=== PATIENT | female | born 1950 | race Hispanic/Latino ===

== ENCOUNTER 2017-05-12 05:51 | Observation (INO) | payer OTHER ==
[2017-05-09 10:30] VITALS: BP 95/56
[2017-05-09 10:35] LABS: BASOPHILS % (AUTO) 0.5 % (0.0-5.0); EOSINOPHILS % (AUTO) 3.8 % (0.0-8.0); HEMATOCRIT 32.9 % (36-48); LYMPHOCYTES % (AUTO) 16.1 % (21.0-51.0); MEAN CORPUSCULAR HGB CONC 33.5 g/dL (32.0-36.0); MEAN CORPUSCULAR VOLUME 83.6 fL (79-99); MONOCYTES % (AUTO) 12.8 % (3.0-13.0); NEUTROPHILS % (AUTO) 66.8 % (40.0-77.0); PLATELET COUNT (AUTO) 310 K/uL (130-400); RED BLOOD CELL COUNT(AUTO) 3.93 MIL/uL (4.00-5.50); RED CELL DISTRIBUTION WIDTH 15.4 % (11.0-15.5); WHITE BLOOD COUNT (AUTO) 4.3 K/uL (4.8-10.8)
[2017-05-09 10:41] LABS: CREATININE 0.5 mg/dL (0.5-1.5); POTASSIUM 4.4 mmol/L (3.5-5.1)
[2017-05-09 10:46] LABS: INR 0.96 (0.85-1.15); PARTIAL THROMBOPLASTIN TIME 25.7 SEC (26.3-35.5); PROTHROMBIN TIME 10.1 SEC (9.6-11.6)
[2017-05-11] VITALS (9 sets, daily range): BP systolic 90–109; BP diastolic 53–68
[~2017-05-12] VITALS: Ht 157.5 cm; Wt 38.3 kg
[2017-05-12] VITALS (10 sets, daily range): BP systolic 76–96; BP diastolic 50–71
[~2017-05-12 05:51] MED LIST: ALBU2.5V2 IH; AZIT250T9 PO; ETHA100T14 PO; ETHA400T8 PO; METO25TA3 PO; MULT-1203 PO; RIFA300C4 PO; SODIUM CHLORIDE 0.9% 1000ML 1,000 ML IV ONE
[2017-05-12] MEDS ORDERED: HEPARIN SODIUM 1000UNIT/ML 10ML VIAL ONE (07:15)
[2017-05-12] MEDS ORDERED: LIDOCAINE HCL 2% 20ML ONE ×2 (07:16→07:56)
[2017-05-12] MEDS ORDERED: MIDAZOLAM HCL 1 MG/ML 2ML VIAL ONE (07:56)
[2017-05-12] MEDS ORDERED: MEPERIDINE-PF 50 MG/ML SYG ONE (07:56)
[2017-05-12] MEDS ORDERED: ISOPROTERENOL HCL 0.2 MG/ML AMP/VIAL/BAG ONE (08:37)
[2017-05-12] MEDS ORDERED: ADENOSINE 3 MG/ML 2ML VIAL IV ONE (08:58)
[2017-05-12] MEDS ORDERED: ONDANSETRON HCL 4 MG/2 ML VIAL ONE (12:35)
[2017-05-12] MEDS ORDERED: ACETAMINOPHEN-CODEINE 300/30MG TAB PO PRN ×2 (13:15)
[2017-05-12] MEDS ORDERED: ACETAMINOPHEN 325 MG TAB PO PRN (13:15)
[2017-05-12] MEDS: ALBUTEROL SULFATE 0.083% 2.5 MG/3 ML INH IH SCH (20:04)
[2017-05-13 03:28] VITALS: BP 90/54
[2017-05-13 04:38] LABS: HEMATOCRIT 28.8 % (36-48); MEAN CORPUSCULAR HEMOGLOBIN 28.6 pg (27.0-33.0); MEAN CORPUSCULAR HGB CONC 34.3 g/dL (32.0-36.0); MEAN CORPUSCULAR VOLUME 83.5 fL (79-99); PLATELET COUNT (AUTO) 245 K/uL (130-400); RED BLOOD CELL COUNT(AUTO) 3.45 MIL/uL (4.00-5.50); RED CELL DISTRIBUTION WIDTH 14.9 % (11.0-15.5)
[2017-05-13 04:45] LABS: CREATININE 0.6 mg/dL (0.5-1.5); POTASSIUM 3.9 mmol/L (3.5-5.1)
[2017-05-13] MEDS: ALBUTEROL SULFATE 0.083% 2.5 MG/3 ML INH IH SCH (06:22)
[2017-05-13 07:00] VITALS: BP 83/49
[2017-05-13] MEDS ORDERED: RIFAMPIN 300 MG CAPSULE PO SCH (09:00)
[2017-05-13] MEDS ORDERED: ETHAMBUTOL HCL 400 MG TABLET PO SCH ×2 (09:00)
[2017-05-13] MEDS ORDERED: AZITHROMYCIN 250 MG TABLET PO SCH (09:00)
[2017-05-13 12:06] VITALS: BP 82/56
== END 2017-05-13 13:45 | disposition left against medical advice (07) ==
LOC: DAH 05:51 → DAHIP 05:52 → 2AH 13:30
PROVIDERS: ADMIT Internal Medicine; ATTEND Internal Medicine
DX: I47.1 Supraventricular tachycardia (principal); D64.9 Anemia, unspecified; I48.91 Unspecified atrial fibrillation; J44.9 Chronic obstructive pulmonary disease, unspecified; A31.0 Pulmonary mycobacterial infection; Z85.028 Personal history of other malignant neoplasm of stomach; Z93.1 Gastrostomy status; Z91.14 Patient's other noncompliance with medication regimen; Z90.49 Acquired absence of other specified parts of digestive tract; Z88.1 Allergy status to other antibiotic agents
CPT/HCPCS: 36415 ×2; 71046; 80048 ×2; 85025; 85027; 85610; 85730; 93005; 93613; 93621; 93623; 93653; 94640 ×2; 94664; A4649; C1730 ×2; C1732; C1894 ×5; G0378 ×32; J0153; J1644; J2175; J2250; J2405; J3490 ×3; J7030; 99152; 99153